=== PATIENT | female | born 1975 | race Caucasian/White ===

== ENCOUNTER 2020-11-29 03:18 | Inpatient (IN) | payer OTHER ==
[~2020-11-29] VITALS: Ht 154.9 cm; Wt 47.5 kg
[2020-11-29] MEDS ORDERED: SODIUM CHLORIDE 0.9% 1,000ML IVBOLUS ONE (03:30)
[2020-11-29] MEDS ORDERED: SODIUM CHLORIDE FLUSH 10ML SYR IVF ONE (03:30)
[2020-11-29] MEDS ORDERED: ONDANSETRON 2MG/ML, 2ML IVPush ONE (03:30)
[2020-11-29] MEDS ORDERED: PROMETHAZINE 25 MG/ML, 1ML IM ONE (03:30)
[2020-11-29] MEDS ORDERED: HYDROmorphone 1 MG/ML, 1ML INJ ONE ×3 (03:33→07:07)
[2020-11-29] MEDS ORDERED: ONDANSETRON 2MG/ML, 2ML ONE ×2 (03:33→11:53)
[2020-11-29] MEDS ORDERED: PROMETHAZINE 25 MG/ML, 1ML ONE (03:33)
--- NOTE | 2020-11-29 03:44 | NUR ---
pt came into ER via [facility] and complaining of massive abdominal pain to right lower quad, and nausea and vomiting. pt actively having vomiting. Pt triaged and moved to room 38, and MD to bedside to eval pt. PIV started to right ac with 18g x1 attempt, and flushed easy, no redness or swelling, and secured with tape. 1L NS started to infuse completely and blood drawn at piv start and sent to lab. pt unable to give urine yet, but is aware. Meds given per emar, and pt more comfortable at this time. pts is at bedside with her. pt on cr monitor, and siderails up x2, and call light within reach.
[2020-11-29] MEDS: HYDROmorphone 1 MG/ML, 1ML INJ IVPush PRN ×2 (03:47→05:54)
[2020-11-29 03:51] LABS: BASOPHILS % (AUTO) 1 % (0-1); EOSINOPHILS % (AUTO) 4 % (1-7); LYMPHOCYTES % (AUTO) 32 % (22-44); MEAN CORPUSCULAR HEMOGLOBIN 29.7 pg (27.0-34.8); MEAN CORPUSCULAR HGB CONC 34.7 g/dL (32.4-35.8); MEAN PLATELET VOLUME 7.8 fL (7.4-10.4); MONOCYTES % (AUTO) 7 % (2-9); NEUTROPHILS % (AUTO) 56 % (42-75); PLATELET COUNT 298 x10^3/uL (130-400); RED BLOOD COUNT 4.54 x10^6/uL (3.82-5.3); RED CELL DISTRIBUTION WIDTH 13.5 % (9.6-15.2)
[2020-11-29 03:56] LABS: MD NO
[2020-11-29 04:00] LABS: ALBUMIN 3.8 g/dL (3.4-5.0); ANION GAP 9 mmol/L (5-15); CALCIUM 8.6 mg/dL (8.5-10.1); CHLORIDE 108 mmol/L (98-107)
[2020-11-29 04:06] LABS: ALANINE AMINOTRANSFERASE 23 U/L (12-78); ALKALINE PHOSPHATASE 67 U/L (45-117); BILIRUBIN,TOTAL 0.5 mg/dL (0.2-1.0); TOTAL PROTEIN 7.5 g/dL (6.4-8.2)
--- NOTE | 2020-11-29 04:16 | NUR ---
pt reassesed for pain, and she says it's a 2/10 at this time, and relieved. pt taken to ct at this time by the [employer] director. iv site intact, and ivf finished.
--- NOTE | 2020-11-29 04:51 | NUR ---
pt able to get up and use the bathroom. used wheelchair to get to bathroom. pt still has some nausea and dry heave x1. able to provide urine sample and sent to lab. pt back in bed, on cr monitor, and warm blankets provided. pts pain level currently per pt, is 3/10.
--- NOTE | 2020-11-29 05:03 | NUR ---
pt wheeled to radiology for pelvic ultrasound.
[2020-11-29 05:07] LABS: MICROSCOPIC NOT IND
--- NOTE | 2020-11-29 05:49 | NUR ---
pt back from ultrasound. pt states she is in a lot of pain again. pt medicated per emar, second dose of dilaudid and expressed pain relief. pt states she is still nauseous and has vomitted again. MD updated for further treatment.
--- NOTE | 2020-11-29 06:36 | NUR ---
Report and care to day shift RN.
--- NOTE | 2020-11-29 07:20 | NUR ---
Pt resting in bed, laying on side. Pt states pain "is creeping back up." Pt medicated to MAR. at bedside.
[2020-11-29] MEDS ORDERED: HYDROmorphone 1 MG/ML, 1ML INJ IVPush PRN ×2 (07:30→12:30)
[2020-11-29] MEDS ORDERED: SODIUM CHLORIDE FLUSH 10ML SYR IVF PRN (08:00)
--- NOTE | 2020-11-29 08:21 | NUR ---
Admitting OBGYN at bedside.
--- NOTE | 2020-11-29 09:13 | NUR ---
Report to Isabella, floor RN. Pt resting in [facility], at bedside.
--- NOTE | 2020-11-29 09:13 | NUR ---
Pt has been NPO since 2029 last night.
[2020-11-29 10:07] VITALS: BP 99/67
[2020-11-29] MEDS ORDERED: NAPR-685 PO (10:35)
[2020-11-29] MEDS ORDERED: EPINEPHRINE 1 MG/ML, 1ML ONE (10:35)
[2020-11-29] MEDS ORDERED: DESL5TAB40 PO (10:35)
[2020-11-29] MEDS ORDERED: BUPIVACAINE/PF 0.25% ONE (10:36)
[2020-11-29] MEDS ORDERED: FENTANYL PF 100 MCG/2ML ONE ×2 (11:48→12:08)
[2020-11-29] MEDS ORDERED: MIDAZOLAM 1 MG/ML, 2ML ONE (11:48)
[2020-11-29] MEDS ORDERED: ROCURONIUM 10 MG/ML,10ML ONE (11:53)
[2020-11-29] MEDS ORDERED: DEXAMETHASONE 4 MG/ML, 1ML ONE (11:53)
[2020-11-29] MEDS ORDERED: PROPOFOL 10 MG/ML, 20ML ONE (11:53)
[2020-11-29] MEDS ORDERED: SUGAMMADEX 200 MG/2 ML IVPush ONE (11:53)
[2020-11-29] MEDS ORDERED: CEFAZOLIN 1,000 MG ONE (11:53)
[2020-11-29] MEDS ORDERED: OXYcodone 5 MG/5 ML ORAL.SOL UDC ONE (12:09)
[2020-11-29] MEDS ORDERED: BUPIVACAINE/PF 0.25% INFIL ONE (12:28)
[2020-11-29] MEDS ORDERED: BUPIVACAINE/PF-EPI 0.25% 1:200K INFIL ONE (12:28)
[2020-11-29] MEDS ORDERED: ACETAMINOPHEN 325 MG TABLET PO PRN (12:30)
[2020-11-29] MEDS ORDERED: ONDANSETRON 2MG/ML, 2ML IVPush PRN ×2 (12:30→14:30)
[2020-11-29] MEDS ORDERED: PROMETHAZINE 25 MG/ML, 1ML IVPush PRN (12:30)
[2020-11-29] MEDS ORDERED: OXYcodone 5 MG/5 ML ORAL.SOL UDC PO PRN (12:30)
[2020-11-29] MEDS ORDERED: MEPERIDINE/PF 25MG/0.5ML IVPush PRN (12:30)
[2020-11-29] MEDS ORDERED: DIAZEPAM 5 MG/ML, 2ML IVPush PRN (12:30)
[2020-11-29] MEDS ORDERED: FENTANYL PF 100 MCG/2ML IV PRN (12:30)
[2020-11-29] MEDS ORDERED: DIPHENHYDRAMINE 50 MG/ML, 1ML IVPush PRN (12:30)
[2020-11-29] MEDS ORDERED: MEPERIDINE/PF 25MG/ML,1ML ONE (13:01)
[2020-11-29] MEDS ORDERED: IBUP-1223 PO (13:03)
[2020-11-29] MEDS ORDERED: OXYC1TAB14 PO (13:03)
[2020-11-29 14:03] VITALS: BP 105/68
[2020-11-29] MEDS ORDERED: HYDROmorphone 2 MG/ML, 1ML IVPush PRN (14:30)
[2020-11-29] MEDS ORDERED: OXYcodone/APAP 5/325MG TABLET PO PRN (14:30)
[2020-11-29] MEDS ORDERED: IBUPROFEN 600 MG TABLET PO PRN (14:30)
[2020-11-29] MEDS ORDERED: LACTATED RINGERS 1,000 ML IV SCH (14:30)
== END 2020-11-29 17:33 | disposition home or self-care (01) | DRG 742 ==
LOC: ED 03:48 → EDIP 07:56 → 3N 09:37
PROVIDERS: ADMIT Obstetrics & Gynecology; ATTEND Obstetrics & Gynecology
PROC: 0UT04ZZ Resection of Right Ovary, Percutaneous Endoscopic Approach (ICD-10-PCS; 2020-11-29)
PROC: 0UT54ZZ Resection of Right Fallopian Tube, Percutaneous Endoscopic Approach (ICD-10-PCS; principal; 2020-11-29 11:30)
DX: N83.511 Torsion of right ovary and ovarian pedicle (principal); U07.1 COVID-19; K66.1 Hemoperitoneum; E87.70 Fluid overload, unspecified; N83.291 Other ovarian cyst, right side; Z80.8 Family history of malignant neoplasm of other organs or systems; Z98.891 History of uterine scar from previous surgery
CPT/HCPCS: 36415; 74177; 76830; 80053; 81003; 83690; 84702; 84703; 85025; 87635; 88305; 96361; 96372; 96374; 96375; 96376; 99285; G0378; J0171; J0690; J1100; J1170; J2175; J2250; J2405; J2550; J2704; J3010; J7030